=== PATIENT | female | born 1965 | race Caucasian/White ===

== ENCOUNTER 2017-03-13 09:30 | Emergency (ER) | payer OTHER ==
[~2017-03-13] VITALS: Ht 157.5 cm; Wt 78.0 kg
[2017-03-13 09:46] VITALS: Ht 157.5 cm; Wt 78.0 kg
--- NOTE | 2017-03-13 11:15 | ERD ---
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 Patient states that she tripped and fell. Denies hitting her head or loss of consciousness. Denies any previous trauma. States that she took Tylenol last night. ROS All systems reviewed and are negative except as per history of present illness. Medications Home Meds Active Scripts Naproxen* (Naprosyn*) 500 Mg Tablet, 500 MG PO BID Y for PAIN AND/OR INFLAMMATION, #30 TAB Prov:JESSIE SANTAMARIA PA-C 03/13/17 Hydrocodone/Acetaminophen ([place] 5-325 Tablet) 1 Each Tablet, 1 TAB PO Q6H Y for PAIN, #10 TAB Prov:JESSIE SANTAMARIA PA-C 03/13/17 PMhx/Soc Medical and Surgical Hx: pt denies Medical Hx, pt denies Surgical Hx Hx Alcohol Use: No Hx Substance Use: No Hx Tobacco Use: No Smoking Status: Never smoker Physical Exam Vitals Vital Signs Date Time Temp Pulse Resp B/P Pulse Ox O2 Delivery O2 Flow Rate FiO2 03/13/17 09:46 98.1 78 18 139/78 99 Physical Exam Const: No acute distress Head: Atraumatic Eyes: Normal Conjunctiva ENT: Normal External Ears, Nose and Mouth. Neck: Full range of motion..~ No meningismus. Resp: Clear to auscultation bilaterally Cardio: Regular rate and rhythm, no murmurs Skin: No petechiae or rashes MSK: Right wrist with no obvious deformity. No effusion. No ecchymosis. Decreased range of motion secondary to pain. Tenderness to palpation over lunate and triquetral bone. Nontender scaphoid. Nontender forearm. Pulses 2+ . Distal neurovascularly intact Neur: Awake and alert Psych: Normal Mood and Affect Results 24 hrs DIAGNOSTIC IMAGING REPORT Patient: TARA SANTOS : 1965 Age: 52 Sex: F MR #: [id number] DOS: 03/13/17 0000 Ordering MD: JESSIE SANTAMARIA PA-C Location: [facility] Room/Bed: PROCEDURE: XR Wrist. CLINICAL INDICATION: Right wrist pain and trauma TECHNIQUE: AP, oblique, scaphoid and lateral views of the right wrist were performed. COMPARISON: No prior studies are available for comparison. FINDINGS: The osseous structures are intact. No destructive bony lesions are identified. Interosseous spaces are normal. Soft tissues surrounding the wrist are unremarkable. IMPRESSION: No visualized traumatic injury. If there is high clinical suspicion for traumatic injury, further evaluation with CT should be considered. 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 Patient states she took Tylenol but the pain has not improved. Given the trauma I did obtain images Per the radiology report images of the right wrist show no visualized traumatic injury. Interosseous spaces are normal. Soft tissue surrounding the wrist are unremarkable. Low suspicion for acute fracture dislocation. Patient symptoms at this time most consistent with sprain versus strain. Low suspicion for scaphoid fracture. Patient stated that she had Motrin here with her in the emergency department. She is driving and I do not feel that a narcotic is beneficial to the patient at this time. I will give her a short course of [place] and Naprosyn for home. Patient was also placed in a velcro wrist splint for comfort. At this time the patient is stable for discharge and outpatient management. Patient should follow up with their PCP in the next 1-2 days. They may return to the emergency department sooner for any persistent or worsening of symptoms. Patient understood and agreed with the plan. Departure Diagnosis: Primary Impression: Wrist injury Encounter type: initial encounter Laterality: right Qualified Code: S69.91XA - Wrist injury, right, initial encounter Condition: Fair JESSIE SANTAMARIA PA-C March 13, 2017 11:14
--- NOTE | 2017-03-13 12:33 | RADRPT ---
PROCEDURE: XR Wrist. CLINICAL INDICATION: Right wrist pain and trauma TECHNIQUE: AP, oblique, scaphoid and lateral views of the right wrist were performed. COMPARISON: No prior studies are available for comparison. FINDINGS: The osseous structures are intact. No destructive bony lesions are identified. Interosseous spaces are normal. Soft tissues surrounding the wrist are unremarkable. IMPRESSION: No visualized traumatic injury. If there is high clinical suspicion for traumatic injury, further evaluation with CT should be consi dered. RPTAT: AA .Nicko Mahoney MD, MD Date Time Electronically viewed and signed by .Nicko Mahoney MD, on 03/13/2017 12:33 .P/
[2017-03-13] MEDS ORDERED: HYDR-906 PO (12:50)
[2017-03-13] MEDS ORDERED: NAPR-260 PO (12:50)
== END 2017-03-13 13:32 | disposition home or self-care (01) ==
LOC: FTE 09:30
DX: S69.91XA Unspecified injury of right wrist, hand and finger(s), initial encounter (principal); W01.0XXA Fall on same level from slipping, tripping and stumbling without subsequent striking against object, initial encounter; Y92.009 Unspecified place in unspecified non-institutional (private) residence as the place of occurrence of the external cause
CPT/HCPCS: 29125; 73110; Z7502

== ENCOUNTER 2018-04-23 08:58 | Day surgery (SDC) | END 2018-04-23 15:40 | disposition home or self-care (01) ==